=== PATIENT | female | born 1955 | race Caucasian/White ===

== ENCOUNTER → 2016-11-09 | Outpatient (CLI) | payer MEDICARE ==
[~2016-11-09] MED LIST: AMBI10TA PO; CELE20TA PO; CLIN1CAP5 PO; CORTIS10A AS; ENAL20TA81 PO; GLUCTAB PO; ONDA1TAB16 PO; SYNT112T PO; TYLE3 PO
[2016-11-09 11:44] LABS: HEMATOCRIT 42.7 % (35.0-46.0); REVIEW FLAG FINAL
== END ==
LOC: CLAB 11:07
PROVIDERS: ATTEND Internal Medicine Endocrinology, Diabetes & Metabolism
DX: D64.9 Anemia, unspecified (principal)
CPT/HCPCS: 36415; 85014; 85018

== ENCOUNTER → 2018-02-14 | Outpatient (CLI) | payer MEDICARE ==
[2018-02-14 11:40] LABS: BICARBONATE 27.2 MEQ/L (21.0-32.0); BLOOD UREA NITROGEN 14 MG/DL (7-18); CALCIUM 8.7 MG/DL (8.5-10.1); CHLORIDE 105 MEQ/L (98-107); GLOMERULAR FILTRATION RATE 73 ML/MIN (>89); GLUCOSE,FASTING 102 MG/DL (74-99); SODIUM (NA) 141 MEQ/L (136-145)
[2018-02-14 11:48] LABS: FREE T3 2.61 PG/ML (2.18-3.98); FREE T4 0.62 NG/DL (0.76-1.46)
[2018-02-14 13:58] LABS: HEMOGLOBIN A1C 11.4 % (4.3-6.0)
[2018-02-15 23:53] LABS: THYROID PEROX AB (MICROSOMAL) 137 IU/mL (<9)
[2018-02-16 19:51] LABS: THYROGLOB ABS 4 IU/mL (< OR = 1)
== END ==
LOC: CLAB 10:14
DX: E11.65 Type 2 diabetes mellitus with hyperglycemia (principal); E03.9 Hypothyroidism, unspecified
CPT/HCPCS: 36415; 80048; 83036; 84432; 84439; 84443; 84481; 86376; 86800